=== PATIENT | female | born 1995 | race Caucasian/White ===

== ENCOUNTER → 2017-04-28 | Emergency (ER) | payer OTHER ==
[~2017-04-28] VITALS: Ht 165.1 cm; Wt 79.4 kg
[~2017-04-28] MED LIST: CRUTCH2 XX; ETHINYL ESTRADI1 TA1 PO; FLEXERIL10 MG PO; LODINE400 MG PO; NAPROSYN500 M1 PO
--- NOTE | 2017-04-28 16:39 | Emergency Room Report ---
History of Present Illness Time Seen by MD Pham Presenting Problem in Triage Pt arrived:Walked Presenting Problem:LIGHT SPOTTING ON THE THAT HAS CONTINUED. DENIES PAIN AND CRAMPING. 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 N Clinical Suspician of Infection? N Mental Status: 1 - Regular (Normal Baseline) Sepsis Risk:Low Sepsis Risk Have you (or family members/close friends) recently traveled outside the [place]? N If Yes, where/when: Have you had exposure to infectious disease within the past month? N TB? Other? Specify: Source patient, RN notes reviewed Exam Limitations no limitations Comment pT IS AND HAS NOT BEEN ON CONTROL FOR THE PAST 9 MONTHS. She had a positive home test on 04/22. She has not been to the ER or to the Dr. to establish care. On the she had some spotting that was very light . she does not know her blood type and has not had a quantitative test Cardiac Chest Pain Chest pain indicative of cardiac No ALLERGIES Coded Allergies: No Known Allergies (05/03/15) Home Medications Active Scripts Device (Crutches, Standard) SET XX UD #1 Prov: 09/25/14 Reported Medications No Known Home Medications History Medical History General CAD? No Angina: No CO: No Hypertension? No Hyperlipidemia? No CHF? No DVT? No PE? No COPD? No Asthma? No Anemia? No GERD? No Gastric ulcers? No GI Bleed? No Hernia? No Thyroid Problems? No Hypothyroidism? No CVA? No Seizures? No Diabetes? No End Stage Renal Disease? No UTI? No Stones? No BPH? No GB Disease: No Nephritic Syndrome? No Asplenia? No Hepatitis? No Sickle Cell Disease? No Arthritis? No Migraines? No Cataracts? No Glaucoma? No MRSA? No HIV? No TB? No Anxiety? No Depression? No Cancer? No More? 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 Physical Exam Vital Signs Vital Signs Date Time Temp Pulse Resp B/P Pulse O2 O2 Flow FiO2 Ox Delivery Rate 04/28 2021 98.5 98 16 134/901 98 04/28 1627 98.5 100 16 156/95 98 General Appearance normal appearance, WD/WN, no apparent distress Respiratory Status No: respiratory distress. 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 No Results/Orders Laboratory Tests 04/28/17 1820: RBC Katie Test NEGATIVE, Antibody Screen NEGATIVE, Miscellaneous Test NEGATIVE 04/28/17 1650: Sodium 140, Potassium 3.5, Chloride 103, Carbon Dioxide 25, BUN 11, Creatinine 0.7, Estimated Creat Clear 158, Estimated GFR (MDRD) 105, Glucose 101, Calcium 9.2, Total Bilirubin 0.1 L, AST 24, ALT 37, Alkaline Phosphatase 103, Total Protein 8.2, Albumin 3.9, Globulin 4.3 H, Albumin/Globulin Ratio 0.9 L, Beta HCG, Quant 2139.1, WBC 10.8, RBC 4.95, Hgb 14.4, Hct 42.1, MCV 85.2, RDW 13.3, Plt Count 327, MPV 6.9 L, Gran % 60.6, Gran # 6.5, Lymphocytes % 30.9, Monocytes % 6.2, Eosinophils % 1.8, Basophils % 0.3, Lymphocytes # 3.3, Monocytes # 0.7, Eosinophils # 0.2, Basophils # 0.0, PUBS MCHC 34.2, MCH 29.2, Miscellaneous Test NEGATIVE Current Medication Orders Sig/Joaquim Start time Last Medication Dose Route Stop Time Status Admin Sodium Chloride 10 ML PRN PRN 04/28 1645 AC IV 04/29 1642 Orders Procedure Date/time Status RHOGAM SCREEN 04/28 180 Complete IV SALINE LOCK 04/28 1647 Active URINALYSIS/COMPLETE 04/28 1647 Active RH BLOOD TYPE 04/28 1647 Complete URINE 04/28 1647 Complete CBC WITH AUTO DIFF 04/28 1647 Complete CHEM 12 PROFILE 04/28 1647 Complete BETA-HCG, QUANT 04/28 1647 Complete Departure Departure Time of Disposition 2031 Disposition DC Home or Self Care(routine) Clinical Impression Primary Impression: Threatened Secondary Impressions: Missed Condition STABLE Additional Instructions Advised to rest for the next 2 to 3 days, then followup with OBGYN to get a repeat Quantitative HCG and if she passes any tissue she should collect it and take it with her to see the OBGYN Also given a shot of RhoGam in the ED prior to discharge Discharge Counseling Counseled pt/family regarding diagnosis, test results, home care, follow up needs Prescriptions Current Visit Scripts No Known Home Medications ED Critical Care Critical Care No If Critical Care minutes are documented, the time involved in the performance of seperately reportable procedures was not counted toward critical care time documented. I directly delivered medical care to this critically ill and/or injured patient. Timely evaluation and treatment was necessary to address the significant organ system(s) dysfunction present in this patient. at 2034
--- OUTSIDE RECORDS SUMMARY | 2017-04-28 16:56 | External Medical Summary Rpt | CCD ---
Author Author RODRIGUE Address Unknown Phone [email or web address] Purpose Continuity of Care Document - through 2016
--- OUTSIDE RECORDS SUMMARY | 2017-04-28 16:56 | External Medical Summary Rpt | CCD ---
Author Author [employer] Organization [employer] Address Unknown Phone Unavailable Purpose Continuity of Care Document - through 2016
--- OUTSIDE RECORDS SUMMARY | 2017-04-28 16:56 | External Medical Summary Rpt | CCD ---
Author Author RODRIGUE Address Unknown Phone Purpose Continuity of Care Document - through 2016
--- OUTSIDE RECORDS SUMMARY | 2017-04-28 16:56 | External Medical Summary Rpt | CCD ---
Demographics Preferred Language Bahraini Marital Status Unknown Presybeterian Affiliation Unknown Race Unknown Ethnic Group Unknown Author Author , RODRIGUE HUSAIN Address Unknown Phone Immunization No patient found.
--- OUTSIDE RECORDS SUMMARY | 2017-04-28 16:56 | External Medical Summary Rpt | CCD ---
Demographics Preferred Language Liberian Marital Status Unknown Scientology Affiliation Unknown Race Unknown Ethnic Group Unknown Author Author , RODRIGUE HUSAIN Address Unknown Phone Immunization No patient found.
[2017-04-28 17:17] LABS: HEMOGLOBIN 14.4 g/dL (12.2-16.2); LYMPH # 3.3 K/mm3 (0.7-4.5); LYMPH % 30.9 % (10-50.0)
--- NOTE | 2017-04-28 19:50 | RADIOLOGY REPORT PS360 ---
US TRANSVAGINAL PREG HISTORY: WITH BLEEDING ORDERING PHYSICIAN: Mellissa Childress MD PATIENT AGE: 22 years COMPARISON: None FINDINGS: There is a 4 mm cystic area within the endometrium. This is nonspecific and could represent very early gestational sac. . Follow-up recommended. No pole apparent but may be too early. The right ovary is 2.6 x 2 cm and contains small follicles. The left ovary is 2.7 x 1.8 cm also containing small follicles. There is a small amount fluid in the right adnexa. IMPRESSION: Small cystic area within the endometrium measuring 4 mm. Cannot confirm viability but may be too early. Recommend serial beta hCGs and follow-up ultrasound for further evaluation. There is a small amount fluid in the right adnexal region
[2017-04-28 20:19] LABS: ABO BLOOD TYPE A; RH BLOOD TYPE NEGATIVE
[2017-04-28 20:20] LABS: FETALSCREEN NEGATIVE (NEGATIVE); RHOGAM LOT # RHOGAM INFORMATION
[2017-04-28 20:36] VITALS: BP 134/901
== END ==
LOC: ER 16:22
PROVIDERS: General Practice
DX: O20.0 Threatened abortion (principal); Z3A.01 Less than 8 weeks gestation of pregnancy
CPT/HCPCS: J2790